=== PATIENT | female | born 1970 | race African-American/Black ===

== ENCOUNTER 2017-11-25 09:35 | Inpatient (IN) | payer OTHER ==
[2017-11-25 10:00] VITALS: BMI 32.1
--- NOTE | 2017-11-25 10:36 | HP ---
CIWA Score - CIWA Score Nausea/Vomitin Muscle Tremors: 2 Anxiety: 3 Agitation: 2 Paroxysmal Sweats: 1-Minimal Palms Moist Orientation: 0-Oriented Tacttile Disturbances: 1-Very Mild Itch/Numbness Auditory Disturbances: 1-Very Mild Visual Disturbances: 0-None Headache: 2-Mild CIWA-Ar Total Score: 15 Admission ROS BHS - HPI Chief Complaint: i need help to stop drinking alcohol Allergies/Adverse Reactions: Allergies Allergy/AdvReac Type Severity Reaction Status Date / Time No Known Allergies Allergy Verified 11/25/17 10:28 History of Present Illness: this 47 years old female with alcohol dependence,seeking detox,withdrawal symptom,never been in detox before, type 2 dm on insulin schizophrenia hypercholesterolemia nicotine dependence coughing with yellowish mucous for 3 days Exam Limitations: No Limitations - Ebola screening Have you traveled outside of the country in the last 21 days: No (N) Have you had contact with anyone from an Ebola affected area: No Have you been sick,other than usual withdrawal symptoms: No Do you have a fever: No - Review of Systems Constitutional: Loss of Appetite, Malaise, Night Sweats, Changes in sleep, Weakness EENT: reports: Nose Congestion Respiratory: reports: Other (coughing and yellowih mucous for 3 days) GI: reports: Nausea, Vomiting, Abdominal cramping : reports: No Symptoms Reported Musculoskeletal: reports: Back Pain, Muscle Pain Integumentary: reports: Dryness Neuro: reports: Headache, Tremors Endocrine: reports: No Symptoms Reported, Other (type 2 dm ,also on insulin) Hematology: reports: No Symptoms Reported Psychiatric: reports: No Sypmtoms Reported, Judgement Intact, Mood/Affect Appropiate Patient History - Patient Medical History Hx Anemia: No Hx Asthma: No Hx Chronic Obstructive Pulmonary Disease (COPD): No Hx Cancer: No Hx Cardiac Disorders: No Hx Congestive Heart Failure: No Hx Hypertension: No Hx Hypercholesterolemia: Yes Hx Pacemaker: No HX Cerebrovascular Accident: No Hx Seizures: No Hx Dementia: No Hx Diabetes: Yes (type 2 dm ,also on insulin) Hx Gastrointestinal Disorders: No Hx Liver Disease: No Hx Genitourinary Disorders: No Hx Sexually Transmitted Disorders: No Hx Renal Disease (ESRD): No Hx Thyroid Disease: No Hx Human Immunodeficiency Virus (HIV): No (last 2016) Hx Hepatitis C: No Hx Depression: No Hx Suicide Attempt: No Hx Bipolar Disorder: No Hx Schizophrenia: Yes (on med) Other Medical History: no suicidalmno homicidal - Patient Surgical History Past Surgical History: Yes Other Surgical History: oral surgery ,all teeth pulled - PPD History Previous Implant?: Yes Documented Results: Negative w/o proof Implanted On Prior R Admission?: No PPD to be Administered?: Yes - Reproductive History Patient is a Female of Child Bearing Age (11 -55 yrs old): Yes Last Menstrual Period: 10/21/17 Patient : No - Smoking Cessation Smoking history: Current every day smoker Have you smoked in the past 12 months: Yes Aproximately how many cigarettes per day: 10 Hx Chewing Tobacco Use: No Initiated information on smoking cessation: Yes 'Breaking Loose' booklet given: 11/25/17 - Substance & Tx. History Hx Alcohol Use: Yes Hx Substance Use: No Substance Use Type: Alcohol Hx Substance Use Treatment: No - Substances Abused Alcohol Route: Oral Frequency: Daily Amount used: 1 PINT OF BACARDI, 3 CANS OF 40 [employer] Age of first use: 17 Date of Last Use: 11/24/17 Family Disease History - Family Disease History Family Disease History: Diabetes: Sister (alcohol), Other: Father (alcohol), Sister Admission Physical Exam BHS - Vital Signs Vital Signs: Vital Signs - 24 hr 11/25/17 09:59 Temperature 98.6 F Pulse Rate 106 H Respiratory 18 Rate Blood Pressure 164/100 - Physical General Appearance: Yes: Moderate Distress, Tremorous, Irritable, Anxious HEENTM: Yes: CRISELDA, Rhinorrhea, Other (pharynx injected) Respiratory: Yes: Lungs Clear, Normal Breath Sounds, No Respiratory Distress Neck: Yes: Within Normal Limits, Supple, Trachea in good position Breast: Yes: Breast Exam Deferred Cardiology: Yes: Tachycardia Genitourinary: Yes: Within Normal Limits Musculoskeletal: Yes: Back pain, Muscle Pain Extremities: Yes: Tremors 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, Fully Oriented, Alert, Motor Strength 5/5 Integumentary: Yes: Dry Lymphatic: Yes: Within Normal Limits - Diagnostic (1) Alcohol dependence with uncomplicated withdrawal Current Visit: Yes Status: Acute (2) DM type 2 (diabetes mellitus, type 2) Current Visit: Yes Status: Acute (3) IDDM (insulin dependent diabetes mellitus) Current Visit: Yes Status: Acute (4) Acute bronchitis Current Visit: Yes Status: Acute (5) Hypercholesterolemia Current Visit: Yes Status: Acute (6) Nicotine dependence Current Visit: Yes Status: Acute (7) Schizophrenia Current Visit: Yes Status: Chronic Cleared for Admission [facility] - Detox or Rehab [facility] Level of Care: Medically Managed Detox Regimen/Protocol: Librium BHS Breath Alcohol Content Breath Alcohol Content: 0 Urine Pregancy Test - Result Urine Test Results: Negative- NO Line Present Urine Drug Screen - Results Drug Screen Negative: Yes
[2017-11-25] MEDS ORDERED: MAGNESIUM CITRATE 300 ML BOTTLE PO PRN (11:03)
[2017-11-25] MEDS ORDERED: MAG HYDROX/AL HYDROX/SIMETH 30 ML UNIT-DOSE CUP PO PRN (11:03)
[2017-11-25] MEDS ORDERED: ACETAMINOPHEN 325 MG TABLET (FP) PO PRN (11:03)
[2017-11-25] MEDS ORDERED: hydrOXYzine PAMOATE 50 MG CAPSULE (FP) PO PRN (11:03)
[2017-11-25] MEDS ORDERED: LOPERAMIDE HCL 2 MG CAPSULE PO PRN (11:03)
[2017-11-25] MEDS ORDERED: MENTHOL/PHENOL 1 EACH UD MM PRN (11:03)
[2017-11-25] MEDS ORDERED: P-EPHED 60MG/TRIPROLIDI 2.5MG TABLET PO PRN (11:03)
[2017-11-25] MEDS ORDERED: chlordiazePOXIDE HCL 25 MG CAPSULE PO PRN (11:03)
[2017-11-25] MEDS ORDERED: IBUPROFEN 400 MG TABLET (FP) PO PRN (11:03)
[2017-11-25] MEDS ORDERED: MAGNESIUM HYDROX 2400MG/30ML ORAL SUSPENSION 30 ML CUP PO PRN (11:03)
[2017-11-25] MEDS: AMOXICILLIN 500 MG CAPSULE (FP) PO SCH ×2 (13:16→22:41)
--- NOTE | 2017-11-25 14:15 | CONSULT ---
[facility] Psychiatric Consult - Data Date of interview: 11/25/17 Admission source: [facility] Identifying data: Patient is a 47 year old single male, mother of six, unemployed, homeless, and is supported by SSI benefits. This is patient's first admission to detox at [facility]. Patient admitted to for alcohol dependence. Substance Abuse History: Smoking Cessation. Smoking history: Current every day smoker. Have you smoked in the past 12 months: Yes. Aproximately how many cigarettes per day: 10. Hx Chewing Tobacco Use: No. Initiated information on smoking cessation: Yes. 'Breaking Loose' booklet given: 11/25/17. - Substance & Tx. History. Hx Alcohol Use: Yes. Hx Substance Use: No. Substance Use Type : Alcohol. Hx Substance Use Treatment: No Medical History: diabetes, oral surgery (all teeth pulled) Psychiatric History: Patient's first psychiatric contact was in [address] [facility]. She was diagnosed with schizophrenia and started on risperdal. Patient reports multiple psychiatric hospitalizations from [id number] due to medication noncompliance. At one time patient reports receiving risperdal consta but medication was discontinued due to weight gain. She is currently receiving outpatient psychiatric care by Dr. Gerard at [facility] and receives haldol decanoate 75mg monthly (received decanoate last week). Patient presents as a good historian. No psychosis, manic, or depressive symptoms noted. She denies h/o suicide attempt. Physical/Sexual Abuse/Trauma History: denies. Mental Status Exam - Mental Status Exam Alert and Oriented to: Time, Place, Person Cognitive Function: Good Patient Appearance: Well Groomed Mood: Euthymic Affect: Appropriate Patient Behavior: Appropriate, Cooperative Speech Pattern: Clear, Appropriate Voice Loudness: Normal Thought Process: Intact, Goal Oriented Hallucinations: Denies Suicidal Ideation: Denies Homicidal Ideation: Denies Insight/Judgement: Poor Sleep: Fair Appetite: Fair Muscle strength/Tone: Normal Gait/Station: Normal Psychiatric Findings - Problem List (Elmer 1, 2,3) (1) Alcohol dependence with uncomplicated withdrawal Current Visit: Yes Status: Acute (2) Nicotine dependence Current Visit: Yes Status: Acute (3) Schizophrenia Current Visit: Yes Status: Chronic - Initial Treatment Plan Initial Treatment Plan: Psychoeducation provided. Detoxification in progress. She reports receiving haldol decanoate 75mg last week (reliable historian). No psychosis, manic, or depressive symptoms noted.
--- NOTE | 2017-11-25 15:44 | EKG ---
Test Reason : Blood Pressure : / mmHG Vent. Rate : 103 BPM Atrial Rate : 103 BPM P-R Int : 138 ms QRS Dur : 074 ms QT Int : 346 ms P-R-T Axes : 061 058 012 degrees QTc Int : 453 ms SINUS TACHYCARDIA OTHERWISE NORMAL ECG NO PREVIOUS ECGS AVAILABLE Confirmed by CHOCO MANZO, MARAH ([id number]) on 11/25/2017 3:44:33 PM Referred By: Confirmed By:MARAH WILHELM MD
[2017-11-25] MEDS: chlordiazePOXIDE HCL 25 MG CAPSULE PO SCH ×2 (16:58→22:41)
[2017-11-25 17:14] LABS: URINE APPEARANCE SLCLOUDY; URINE BILIRUBIN NEGATIVE (<2.0 mg/dL); URINE COLOR LTYELLOW; URINE GLUCOSE (UA) 3+ (NEGATIVE); URINE KETONE NEGATIVE (NEGATIVE); URINE LEUK ESTERASE TRACE (NEGATIVE); URINE NITRITE NEGATIVE (NEGATIVE); URINE PROTEIN NEGATIVE (NEGATIVE); URINE UROBILINOGEN NEGATIVE mg/dL (0.2-1.0)
[2017-11-25 17:41] LABS: EPI CELLS MODERATE /HPF (FEW); URINE MUCUS RARE
[2017-11-25] MEDS ORDERED: MELATONIN 5 MG TABLETS PO PRN (22:00)
[2017-11-25] MEDS: THIAMINE HCL 100 MG TABLET (FP) PO SCH (22:41)
[2017-11-26] MEDS: chlordiazePOXIDE HCL 25 MG CAPSULE PO SCH ×4 (06:20→22:49)
[2017-11-26] MEDS: AMOXICILLIN 500 MG CAPSULE (FP) PO SCH ×3 (06:21→22:49)
[2017-11-26] MEDS: PATIENT'S OWN MEDICATION (NON-FORMULARY) (Insulin Glargine,Hum.Rec.Anlog [Basaglar Kwikpen SQ SCH (07:57)
[2017-11-26] MEDS: guaiFENesin/D-METHORPHAN HB 10 ML UNIT-DOSE CUPS PO PRN ×2 (08:35→20:43)
[2017-11-26] MEDS: glipiZIDE-XL 10 MG TAB.ER.24 (FP) PO SCH (09:10)
--- NOTE | 2017-11-26 09:19 | PN ---
[facility] CIWA - CIWA Score Nausea/Vomitin-No Nausea/No Vomiting Muscle Tremors: 2 Anxiety: 3 Agitation: 3 Paroxysmal Sweats: 2 Orientation: 0-Oriented Tacttile Disturbances: 1-Very Mild Itch/Numbness Auditory Disturbances: 0-None Visual Disturbances: 0-None Headache: 1-Very Mild CIWA-Ar Total Score: 12 S Progress Note (SOAP) Subjective: cough, anxious, interrupted sleep, chills Objective: 11/26/17 15:39 Vital Signs Temperature 98.2 F 11/26/17 13:18 Pulse Rate 121 H 11/26/17 13:18 Respiratory Rate 20 11/26/17 13:18 Blood Pressure 140/91 11/26/17 13:18 O2 Sat by Pulse Oximetry (%) Laboratory Last Values WBC 13.3 K/mm3 (4.0-10.0) H 11/26/17 06:00 RBC 4.44 M/mm3 (3.60-5.2) 11/26/17 06:00 Hgb 11.6 GM/dL (10.7-15.3) 11/26/17 06:00 Hct 37.1 % (32.4-45.2) 11/26/17 06:00 MCV 83.5 fl (80-96) 11/26/17 06:00 MCH 26.2 pg (25.7-33.7) 11/26/17 06:00 MCHC 31.3 g/dl (32.0-36.0) L 11/26/17 06:00 RDW 14.3 % (11.6-15.6) 11/26/17 06:00 Plt Count 359 K/MM3 (134-434) 11/26/17 06:00 MPV 10.2 fl (7.5-11.1) 11/26/17 06:00 Sodium 136 mmol/L (136-145) 11/26/17 06:00 Potassium 4.5 mmol/L (3.5-5.1) 11/26/17 06:00 Chloride 101 mmol/L (98-107) 11/26/17 06:00 Carbon Dioxide 25 mmol/L (21-32) 11/26/17 06:00 Anion Gap 10 MMOL/L (8-16) 11/26/17 06:00 BUN 9 mg/dL (7-18) 11/26/17 06:00 Creatinine 0.7 mg/dL (0.55-1.3) 11/26/17 06:00 Creat Clearance w eGFR > 60 (>60) 11/26/17 06:00 POC Glucometer 231 UNITS (80-120) 11/26/17 06:21 Random Glucose 271 mg/dL (74-106) H 11/26/17 06:00 Calcium 9.8 mg/dL (8.5-10.1) 11/26/17 06:00 Total Bilirubin 0.3 mg/dL (0.2-1) 11/26/17 06:00 AST 14 U/L (15-37) L 11/26/17 06:00 ALT 24 U/L (13-61) 11/26/17 06:00 Alkaline Phosphatase 97 U/L (45-117) 11/26/17 06:00 Total Protein 7.8 g/dl (6.4-8.2) 11/26/17 06:00 Albumin 3.6 g/dl (3.4-5.0) 11/26/17 06:00 Urine Color Ltyellow 11/25/17 13:45 Urine Appearance Slcloudy 11/25/17 13:45 Urine pH 5.0 (5.0-8.0) 11/25/17 13:45 Ur Specific [place] 1.020 (1.001-1.035) 11/25/17 13:45 Urine Protein Negative (NEGATIVE) 11/25/17 13:45 Urine Glucose (UA) 3+ (NEGATIVE) H 11/25/17 13:45 Urine Ketones Negative (NEGATIVE) 11/25/17 13:45 Urine Blood Negative (NEGATIVE) 11/25/17 13:45 Urine Nitrite Negative (NEGATIVE) 11/25/17 13:45 Urine Bilirubin Negative (<2.0 mg/dL) 11/25/17 13:45 Urine Urobilinogen Negative mg/dL (0.2-1.0) 11/25/17 13:45 Ur Leukocyte Esterase Trace (NEGATIVE) 11/25/17 13:45 Urine WBC (Auto) 5 /hpf (3-5) 11/25/17 13:45 Urine RBC (Auto) 1 /hpf (0-3) 11/25/17 13:45 Ur Epithelial Cells Moderate /HPF (FEW) 11/25/17 13:45 Urine Mucus Rare 11/25/17 13:45 RPR Titer Nonreactive (NONREACTIVE) 11/26/17 06:00 HIV 1&2 Antibody Screen Negative 11/25/17 12:15 HIV P24 Antigen Negative 11/25/17 12:15 labs reviewed, patient on amox, repeat CBC in AM Aox3 no distress no adventitious breath sounds , + cough full ROM ambulating in the unit Assessment: 11/26/17 15:40 withdrawal sx Acute Bronchitis 11/26/17 15:43 Plan: flonase NS QD gusifenesin 10 ml PO q4h continue amox TID continue detox increase fluids continue to monitor
[2017-11-26] MEDS: PRENATAL VITAMINS W/ FOLIC ACID TABLET (FP) PO SCH (10:44)
[2017-11-26] MEDS: NICOTINE 21 MG/24 HOURS TOPICAL PATCH TD SCH (10:44)
[2017-11-26] MEDS: SIMVASTATIN 5 MG PO SCH (10:44)
[2017-11-26] MEDS: ASPIRIN COATED 81 MG TABLET.EC PO SCH (10:44)
[2017-11-26] MEDS: LISINOPRIL 5 MG TABLET (FP) PO SCH (10:44)
[2017-11-26 11:27] LABS: HEMATOCRIT 37.1 % (32.4-45.2); HEMOGLOBIN 11.6 GM/dL (10.7-15.3); MCH 26.2 pg (25.7-33.7); MCHC 31.3 g/dl (32.0-36.0); MEAN CELL VOLUME 83.5 fl (80-96); MEAN PLT VOLUME 10.2 fl (7.5-11.1); PLATELET COUNT 359 K/MM3 (134-434); RBC 4.44 M/mm3 (3.60-5.2); RDW 14.3 % (11.6-15.6); WHITE BLOOD COUNT 13.3 K/mm3 (4.0-10.0)
[2017-11-26 11:39] LABS: ALBUMIN 3.6 g/dl (3.4-5.0); ALK PHOS 97 U/L (45-117); ANION GAP 10 MMOL/L (8-16); BILIRUBIN,TOTAL 0.3 mg/dL (0.2-1); BLOOD UREA NITROGEN 9 mg/dL (7-18); CALCIUM 9.8 mg/dL (8.5-10.1); CHLORIDE 101 mmol/L (98-107); CO2 25 mmol/L (21-32); CREATININE 0.7 mg/dL (0.55-1.3); GLUCOSE,RANDOM 271 mg/dL (74-106); POTASSIUM 4.5 mmol/L (3.5-5.1); SGOT/AST 14 U/L (15-37); SGPT/ALT 24 U/L (13-61); SODIUM 136 mmol/L (136-145); TOT PROT 7.8 g/dl (6.4-8.2)
[2017-11-26] MEDS: FLUTICASONE PROP 0.05% 16 GM NASAL SPRAY NS SCH (14:10)
[2017-11-26] MEDS: THIAMINE HCL 100 MG TABLET (FP) PO SCH (22:49)
[2017-11-27] MEDS: glipiZIDE-XL 10 MG TAB.ER.24 (FP) PO SCH (06:27)
[2017-11-27] MEDS: AMOXICILLIN 500 MG CAPSULE (FP) PO SCH ×3 (06:27→22:26)
[2017-11-27] MEDS: chlordiazePOXIDE HCL 25 MG CAPSULE PO SCH ×2 (06:27→10:52)
[2017-11-27] MEDS: PATIENT'S OWN MEDICATION (NON-FORMULARY) (Insulin Glargine,Hum.Rec.Anlog [Basaglar Kwikpen SQ SCH (07:33)
[2017-11-27] MEDS: ASPIRIN COATED 81 MG TABLET.EC PO SCH (10:51)
[2017-11-27] MEDS: SIMVASTATIN 5 MG PO SCH (10:51)
[2017-11-27] MEDS: PRENATAL VITAMINS W/ FOLIC ACID TABLET (FP) PO SCH (10:52)
[2017-11-27] MEDS: LISINOPRIL 5 MG TABLET (FP) PO SCH (10:52)
[2017-11-27] MEDS: NICOTINE 21 MG/24 HOURS TOPICAL PATCH TD SCH (10:52)
[2017-11-27] MEDS: FLUTICASONE PROP 0.05% 16 GM NASAL SPRAY NS SCH (10:55)
[2017-11-27 11:18] LABS: BASO % 0.7 % (0-2.0); EOS % 1.7 % (0-4.5); HEMATOCRIT 35.5 % (32.4-45.2); HEMOGLOBIN 11.4 GM/dL (10.7-15.3); LYMPH % 26.4 % (8-40); MCH 26.5 pg (25.7-33.7); MEAN CELL VOLUME 82.8 fl (80-96); MEAN PLT VOLUME 9.3 fl (7.5-11.1); MONO % 7.5 % (3.8-10.2); NEUT % 63.7 % (42.8-82.8); PLATELET COUNT 342 K/MM3 (134-434); RBC 4.29 M/mm3 (3.60-5.2); WHITE BLOOD COUNT 14.6 K/mm3 (4.0-10.0)
--- NOTE | 2017-11-27 13:05 | PN ---
[facility] CIWA - CIWA Score Nausea/Vomitin-No Nausea/No Vomiting Muscle Tremors: 3 Anxiety: 2 Agitation: 3 Paroxysmal Sweats: 1-Minimal Palms Moist Orientation: 0-Oriented Tacttile Disturbances: 0-None Auditory Disturbances: 0-None Visual Disturbances: 0-None Headache: 1-Very Mild CIWA-Ar Total Score: 10 S Progress Note (SOAP) Subjective: sweat tremor anxiety restlessness Objective: 11/27/17 13:06 Vital Signs Temperature 97.9 F 11/27/17 11:30 Pulse Rate 74 11/27/17 11:30 Respiratory Rate 16 11/27/17 11:30 Blood Pressure 157/95 11/27/17 11:30 O2 Sat by Pulse Oximetry (%) Laboratory Last Values WBC 14.6 K/mm3 (4.0-10.0) H 11/27/17 07:49 RBC 4.29 M/mm3 (3.60-5.2) 11/27/17 07:49 Hgb 11.4 GM/dL (10.7-15.3) 11/27/17 07:49 Hct 35.5 % (32.4-45.2) 11/27/17 07:49 MCV 82.8 fl (80-96) 11/27/17 07:49 MCH 26.5 pg (25.7-33.7) 11/27/17 07:49 MCHC 32.0 g/dl (32.0-36.0) 11/27/17 07:49 RDW 14.0 % (11.6-15.6) 11/27/17 07:49 Plt Count 342 K/MM3 (134-434) 11/27/17 07:49 MPV 9.3 fl (7.5-11.1) 11/27/17 07:49 Absolute Neuts (auto) 9.3 K/mm3 (1.5-8.0) H 11/27/17 07:49 Neutrophils % 63.7 % (42.8-82.8) 11/27/17 07:49 Lymphocytes % 26.4 % (8-40) 11/27/17 07:49 Monocytes % 7.5 % (3.8-10.2) 11/27/17 07:49 Eosinophils % 1.7 % (0-4.5) 11/27/17 07:49 Basophils % 0.7 % (0-2.0) 11/27/17 07:49 Nucleated RBC % 0 % (0-0) 11/27/17 07:49 Sodium 136 mmol/L (136-145) 11/26/17 06:00 Potassium 4.5 mmol/L (3.5-5.1) 11/26/17 06:00 Chloride 101 mmol/L (98-107) 11/26/17 06:00 Carbon Dioxide 25 mmol/L (21-32) 11/26/17 06:00 Anion Gap 10 MMOL/L (8-16) 11/26/17 06:00 BUN 9 mg/dL (7-18) 11/26/17 06:00 Creatinine 0.7 mg/dL (0.55-1.3) 11/26/17 06:00 Creat Clearance w eGFR > 60 (>60) 11/26/17 06:00 POC Glucometer 131 UNITS (80-120) 11/27/17 06:26 Random Glucose 271 mg/dL (74-106) H 11/26/17 06:00 Calcium 9.8 mg/dL (8.5-10.1) 11/26/17 06:00 Total Bilirubin 0.3 mg/dL (0.2-1) 11/26/17 06:00 AST 14 U/L (15-37) L 11/26/17 06:00 ALT 24 U/L (13-61) 11/26/17 06:00 Alkaline Phosphatase 97 U/L (45-117) 11/26/17 06:00 Total Protein 7.8 g/dl (6.4-8.2) 11/26/17 06:00 Albumin 3.6 g/dl (3.4-5.0) 11/26/17 06:00 Urine Color Ltyellow 11/25/17 13:45 Urine Appearance Slcloudy 11/25/17 13:45 Urine pH 5.0 (5.0-8.0) 11/25/17 13:45 Ur Specific [place] 1.020 (1.001-1.035) 11/25/17 13:45 Urine Protein Negative (NEGATIVE) 11/25/17 13:45 Urine Glucose (UA) 3+ (NEGATIVE) H 11/25/17 13:45 Urine Ketones Negative (NEGATIVE) 11/25/17 13:45 Urine Blood Negative (NEGATIVE) 11/25/17 13:45 Urine Nitrite Negative (NEGATIVE) 11/25/17 13:45 Urine Bilirubin Negative (<2.0 mg/dL) 11/25/17 13:45 Urine Urobilinogen Negative mg/dL (0.2-1.0) 11/25/17 13:45 Ur Leukocyte Esterase Trace (NEGATIVE) 11/25/17 13:45 Urine WBC (Auto) 5 /hpf (3-5) 11/25/17 13:45 Urine RBC (Auto) 1 /hpf (0-3) 11/25/17 13:45 Ur Epithelial Cells Moderate /HPF (FEW) 11/25/17 13:45 Urine Mucus Rare 11/25/17 13:45 RPR Titer Nonreactive (NONREACTIVE) 11/26/17 06:00 HIV 1&2 Antibody Screen Negative 11/25/17 12:15 HIV P24 Antigen Negative 11/25/17 12:15 lab noted Assessment: 11/27/17 13:07 withdrawal sx Plan: continue detox
[2017-11-27] MEDS: chlordiazePOXIDE 5 MG CAPSULE PO SCH ×2 (18:15→22:26)
[2017-11-27] MEDS: THIAMINE HCL 100 MG TABLET (FP) PO SCH (22:26)
[2017-11-28] MEDS: guaiFENesin/D-METHORPHAN HB 10 ML UNIT-DOSE CUPS PO PRN ×2 (03:01→18:25)
[2017-11-28] MEDS: AMOXICILLIN 500 MG CAPSULE (FP) PO SCH ×3 (05:33→22:35)
[2017-11-28] MEDS: chlordiazePOXIDE 5 MG CAPSULE PO SCH ×2 (05:34→10:45)
[2017-11-28] MEDS: glipiZIDE-XL 10 MG TAB.ER.24 (FP) PO SCH (07:14)
[2017-11-28] MEDS: PATIENT'S OWN MEDICATION (NON-FORMULARY) (Insulin Glargine,Hum.Rec.Anlog [Basaglar Kwikpen SQ SCH (07:14)
[2017-11-28] MEDS: FLUTICASONE PROP 0.05% 16 GM NASAL SPRAY NS SCH (10:44)
[2017-11-28] MEDS: LISINOPRIL 5 MG TABLET (FP) PO SCH (10:44)
[2017-11-28] MEDS: ASPIRIN COATED 81 MG TABLET.EC PO SCH (10:44)
[2017-11-28] MEDS: PRENATAL VITAMINS W/ FOLIC ACID TABLET (FP) PO SCH (10:45)
[2017-11-28] MEDS: NICOTINE 21 MG/24 HOURS TOPICAL PATCH TD SCH (10:45)
[2017-11-28] MEDS: SIMVASTATIN 5 MG PO SCH (10:45)
--- NOTE | 2017-11-28 12:03 | PN ---
BHS Progress Note (SOAP) Subjective: sweats mild shakes feeling a lot better than when I came in. Objective: 11/28/17 11:57 Vital Signs Temperature 98.2 F 11/28/17 09:28 Pulse Rate 114 H 11/28/17 09:28 Respiratory Rate 18 11/28/17 09:28 Blood Pressure 131/76 11/28/17 09:28 O2 Sat by Pulse Oximetry (%) aaox3 ambulating no acute distress Assessment: 11/28/17 11:57 mild withdrawal sx Plan: continue detox d/c in am
[2017-11-28] MEDS: chlordiazePOXIDE HCL 10 MG CAPSULE PO SCH ×2 (18:26→22:35)
[2017-11-28] MEDS: THIAMINE HCL 100 MG TABLET (FP) PO SCH (22:35)
[2017-11-29] MEDS: AMOXICILLIN 500 MG CAPSULE (FP) PO SCH (06:05)
[2017-11-29] MEDS: glipiZIDE-XL 10 MG TAB.ER.24 (FP) PO SCH (06:05)
[2017-11-29] MEDS: chlordiazePOXIDE HCL 10 MG CAPSULE PO SCH (06:05)
[2017-11-29] MEDS: PATIENT'S OWN MEDICATION (NON-FORMULARY) (Insulin Glargine,Hum.Rec.Anlog [Basaglar Kwikpen SQ SCH (08:03)
--- NOTE | 2017-11-29 09:22 | DS ---
[facility] Detox Discharge Summary Admission Date: 11/25/17 Discharge Date: 11/29/17 - History Present History: Alcohol Dependence - Physical Exam Results Vital Signs: Vital Signs Temperature 97.7 F 11/29/17 06:39 Pulse Rate 109 H 11/29/17 06:39 Respiratory Rate 18 11/29/17 06:39 Blood Pressure 152/84 11/29/17 06:39 O2 Sat by Pulse Oximetry (%) - Treatment Hospital Course: Detox Protocol Followed, Detoxed Safely, Responded well, Discharged Condition Good, Rehab Referral Accepted - Medication Discharge Medications: Ambulatory Orders Aspirin Coated [Ecotrin -] 81 mg PO DAILY 11/25/17 Benzonatate 200 mg PO TID PRN 11/25/17 Glipizide Xl [Glucotrol Xl -] 10 mg PO DAILY 11/25/17 Guaifenesin/Dextromethorphan [Robafen Dm Cough Liquid] 118 ml PO DAILY 11/25/17 Insulin Glargine,Hum.rec.anlog [Basaglar Kwikpen U-100] 15 unit SQ DAILY Lisinopril [Zestril] 2.5 mg PO DAILY 11/25/17 Simvastatin 5 mg PO DAILY 11/25/17 - AMA Did Patient Leave Against Medical Advice: No (going home out patient rehab)
[2017-11-29 09:27] VITALS: BP 139/94; PULSE 115; TEMP 98.1
== END 2017-11-29 09:19 | disposition home or self-care (01) | DRG 775 ==
LOC: YASAS 09:35 → Y6N 11:41
PROC: HZ2ZZZZ Detoxification Services for Substance Abuse Treatment (ICD-10-PCS; principal; 2017-11-25)
DX: F10.230 Alcohol dependence with withdrawal, uncomplicated (principal); F17.210 Nicotine dependence, cigarettes, uncomplicated; F20.9 Schizophrenia, unspecified; J20.9 Acute bronchitis, unspecified; E11.65 Type 2 diabetes mellitus with hyperglycemia; K08.199 Complete loss of teeth due to other specified cause, unspecified class; E78.00 Pure hypercholesterolemia, unspecified; R00.0 Tachycardia, unspecified; Z79.4 Long term (current) use of insulin
CPT/HCPCS: 36415; 80053; 81003; 81015; 82962; 85025; 85027; 86593; 87389; 93005; 93010